=== PATIENT | male | born 1975 | race African-American/Black ===

== ENCOUNTER 2021-09-15 09:35 | Emergency (ER) | payer MEDICARE | END 2021-09-15 10:12 | disposition home or self-care (01) | LOC: MADERS 09:35 | DX: J35.8 Other chronic diseases of tonsils and adenoids (principal); F41.9 Anxiety disorder, unspecified; R00.0 Tachycardia, unspecified; J45.909 Unspecified asthma, uncomplicated; Z79.899 Other long term (current) drug therapy | CPT/HCPCS: 99283 ==